=== PATIENT | female | born 1940 | race Caucasian/White ===

== ENCOUNTER → 2017-04-24 | Outpatient (CLI) | payer MEDICARE, BC ==
--- NOTE | 2017-04-25 09:39 | DEXA ---
AP SPINE L1 - L4 0.991 -1.6 0.1 LT FEMUR TOTAL 0.702 -2.4 -0.5 RT FEMUR TOTAL 0.632 -3.0 -1.1 TOTAL BODY TOTAL OTHER DUAL FEMUR FRAX* ASSESSMENT Risk factors: History of adult fracture, history premature menopause. 10 year probability of fracture Major osteoporotic fracture 30.2 % Hip fracture 12.1 % COMMENTS: There is low bone density of the spine. There is osteoporosis of the hips. The increased density of the spine does not represent a significant change. The decreased density of the left hip does represent a significant change. The decreased density of the right hip does represent a significant change. The density of the spine has increased 6.7% since the initial exam on 2001. The spine density has increased 0.5% since the most recent exam on 01/19/2015. The density of the left hip has decreased 12.4% since the initial exam on 2001. The density of the left hip has decreased 3.8% since the most recent exam on 07/2015. The density of the right hip has decreased 18.3% since the initial exam on 06/04. The density of the right hip has decreased 4.8% since the most recent exam on . FOLLOW-UP: Recommendation for the next bone density exam: 2 years. NANI
== END ==
LOC: M WHC 10:19
PROVIDERS: ATTEND Internal Medicine Endocrinology, Diabetes & Metabolism
DX: M81.0 Age-related osteoporosis without current pathological fracture (principal); Z78.0 Asymptomatic menopausal state

== ENCOUNTER → 2019-05-08 | Outpatient (CLI) | payer MEDICARE, BC ==
[~2019-05-08] MED LIST: AMOX500C PO; ASPI81TA85 PO; CALTTAB6 PO; CENT1TAB PO; CIDA500T2 PO; LEVO100T5 PO; LISI10TA4 PO; LOVA40TA PO; METO1TAB32 PO; NITR0.4S14 SL; OCUV1CAP4 PO; OPTI0.5D5 OP; SYST1SOL4 OP; VITA250T50 PO; VITA30004 PO
--- NOTE | 2019-05-09 14:58 | DEXA ---
AP SPINE L1 - L4 1.043 -1.2 0.6 LT FEMUR TOTAL 0.715 -2.3 -0.3 LT NECK 0.708 -2.4 -0.2 RT FEMUR TOTAL 0.678 -2.6 -0.6 RT NECK 0.713 -2.3 -0.2 TOTAL BODY TOTAL OTHER COMMENTS: There is low bone density of the spine. There is low bone density of the left hip. There is osteoporosis of the right hip. The density of the spine has increased 12.3% since the initial exam on 06/04/2002. The spine density has increased 5.2% since the most recent exam on 04/24/2017. The density of the left hip has decreased 10.7% since the initial exam on 06/04/2002. The density of the left hip has increased 1.9% since the most recent exam on 04/24/2017. The density of the right hip has decreased 12.4% since the initial exam on 06/04/2002. The density of the right hip has increased 7.3% since the most recent exam on 04/24/2017. FOLLOW-UP: Recommendation for the next bone density exam: 2 years. NANI
== END ==
LOC: M WHC 08:57
PROVIDERS: ATTEND Internal Medicine Endocrinology, Diabetes & Metabolism
DX: M81.0 Age-related osteoporosis without current pathological fracture (principal)

== ENCOUNTER → 2019-08-29 | Outpatient (REF) | payer MEDICARE, BC ==
--- NOTE | 2019-09-03 16:08 | REP ---
READING OF OUTSIDE MAMMOGRAM FROM [facility]: History of left breast cancer. MLO and ML views of bilateral breasts are performed 08/12/2019 at [facility]. Additional 3D tomosynthesis views are performed on that same day. Patient was recalled for further mammographic images with right ML view and magnification views of the right breast 08/15/2019. Moderate fibroglandular tissue is seen bilaterally. Comparison is made with prior studies including 07/31/2014, 07/29/2013 and 07/27/2012. There is no change in the parenchymal pattern since these prior exams. No new mass is seen bilaterally. There is stable postsurgical architectural distortion on the left. Scattered coarse and scattered punctate calcifications are seen bilaterally and are not clustered in any suspicious manner. Multiple metallic clips are again seen in the left axillary region and there are normal appearing stable lymph nodes in both axillary regions. IMPRESSION: ACR 2 benign. Stable post-surgical changes left breast. No evidence of new mass, architectural distortion or clustered microcalcifications bilaterally. Recommend followup mammogram in one year. BIRADS 2: BI-RADS/ACR category 2 mammogram. Benign Findings. Electronically Signed by Eric Burnham MD 09/04/2019 12:28 P
== END ==
LOC: M RAD 11:31
PROVIDERS: ATTEND Surgery
DX: Z12.31 Encounter for screening mammogram for malignant neoplasm of breast (principal)

== ENCOUNTER → 2022-07-06 | Outpatient (CLI) | payer MEDICARE, BC, OTHER ==
[~2022-07-06] MED LIST changes: -ASPI81TA85 PO; +ASPI81TA86 PO; +B-12100010 PO; +LISI10TA22 PO; -LISI10TA4 PO; -OPTI0.5D5 OP; +OPTI0.5D5 OU; +PROL60SO SC; -SYST1SOL4 OP; +SYST1SOL4 OU; +VITA200016 PO; -VITA250T50 PO; +VITA250T7 PO
== END ==
LOC: M WHC 09:38
PROVIDERS: ATTEND Nurse Practitioner
DX: Z12.31 Encounter for screening mammogram for malignant neoplasm of breast (principal); Z85.3 Personal history of malignant neoplasm of breast